=== PATIENT | male | born 1945 | race Caucasian/White ===

== ENCOUNTER 2022-02-19 22:33 | Inpatient (IN) | payer MEDICARE ==
[~2022-02-19] VITALS: Ht 188 cm; Wt 83.9 kg
[~2022-02-19 22:33] MED LIST: COUMADIN2.5 MG PO; FUROSEMIDE40 MG PO; KLOR-CON20 MEQ PO; LATANOPROST2.5 ML OP; LOSARTAN POTAS100 MG PO; LOVENOX SQ; TERAZOSIN HCL1 MG PO
[2022-02-19] MEDS ORDERED: SODIUM CHLORIDE FLUSH 10 ML SYR IV PRN (22:45)
[2022-02-19] MEDS ORDERED: ONDANSETRON HCL INJ 2MG/ML 2ML 2 MG/ML VIAL IV STA (23:22)
[2022-02-19] MEDS ORDERED: Morphine 4mg INJECTION 4 MG/ML INJ IV ONE (23:30)
[2022-02-19] MEDS ORDERED: Morphine 4mg INJECTION 4 MG/ML INJ ONE (23:41)
[2022-02-19] MEDS ORDERED: ONDANSETRON HCL INJ 2MG/ML 2ML 2 MG/ML VIAL ONE (23:41)
[2022-02-20] MEDS ORDERED: Morphine 4mg INJECTION 4 MG/ML INJ IV ONE (02:00)
[2022-02-20 02:41] LABS: CLARITY,URINE SL CLOUDY (CLEAR); COLOR,URINE ORANGE (YELLOW); LEUKOCYTE ESTERASE ,URINE NEGATIVE (NEGATIVE); NITRITE,URINE NEGATIVE (NEGATIVE)
[2022-02-20 02:42] LABS: KETONES,URINE NEGATIVE (NEGATIVE); PROTEIN,URINE DIPSTICK 1+ (NEGATIVE); URINE UROBILINOGEN 0.2 mg/dL (0.2 - 1)
[2022-02-20 02:45] LABS: BASOPHILS % 0.2 % (0.0-1.0); EOSINOPHILS % 0.1 % (0.0-6.0); HEMATOCRIT 26.8 % (38.2-49.6); HEMOGLOBIN 8.6 g/dL (14.0-18.0); LYMPHOCYTES # (AUTO) 0.8 (1.0-3.2); MEAN CORPUSCULAR HEMOGLOBIN 30.5 pg (28-32); MEAN CORPUSCULAR HGB CONC 32.1 g/dL (31-35); MONOCYTES % 12.6 % (4.4-11.3); NEUTROPHILS # (AUTO) 6.2 (2.1-6.9); NEUTROPHILS % 76.9 % (38.7-80.0); PLATELET COUNT 137 x10e3/uL (140-360); RED BLOOD COUNT 2.82 x10e6/uL (4.3-5.7)
[2022-02-20 02:52] LABS: WBC,URINE (MAN) 21-50 /HPF (0-5)
[2022-02-20 02:53] LABS: BACTERIA,URINE MANY /HPF; EPITHELIAL CELLS,URINE FEW /LPF; RBC,URINE >50 /HPF (0-5)
[2022-02-20 03:20] LABS: ALBUMIN 3.3 g/dL (3.5-5.0); CALCIUM 8.3 mg/dL (8.4-10.2); CREATININE, SERUM 1.1 mg/dL (0.72-1.25)
[2022-02-20] MEDS ORDERED: CEFTRIAXONE 1 GM VIAL IV ONE (03:30)
[2022-02-20] MEDS ORDERED: SODIUM CHLORIDE FLUSH 10 ML SYR INJ PRN (03:30)
[2022-02-20] MEDS ORDERED: TRAMADOL HCL 50 MG TAB PO PRN (04:45)
[2022-02-20 08:04] VITALS: BP 115/61
[2022-02-20 08:09] VITALS: BP 115/61
[2022-02-20] MEDS ORDERED: LIPITOR20 MG PO (09:03)
[2022-02-20] MEDS ORDERED: PLAVIX75 MG PO (09:03)
[2022-02-20 11:39] VITALS: BP 123/66
[2022-02-20] MEDS ORDERED: FUROSEMIDE 20 MG TAB PO PRN (13:00)
[2022-02-20 15:00] LABS: INR 2.44; PROTHROMBIN TIME 28.3 seconds (11.9-14.5)
[2022-02-20 16:00] VITALS: BP 140/76
[2022-02-20] MEDS ORDERED: ACETAMINOPHEN 325 MG TAB PO PRN (16:45)
[2022-02-20] MEDS: WARFARIN SOD 2 MG TAB PO SCH (17:03)
[2022-02-20] MEDS: LOSARTAN POTASSIUM 100 MG TAB PO SCH (17:04)
[2022-02-20 19:15] VITALS: BP 131/57
[2022-02-20 20:00] VITALS: BP 131/57
[2022-02-20] MEDS: ATORVASTATIN 40 MG TAB PO SCH (21:16)
[2022-02-20] MEDS: LATANOPROST(OPTH) 2.5 ML BTL OP SCH (21:16)
[2022-02-21] VITALS (7 sets, daily range): BP systolic 106–130; BP diastolic 60–94
[2022-02-21 06:34] LABS: BASOPHILS # (AUTO) 0.1 (0.0-0.1); BASOPHILS % 0.5 % (0.0-1.0); EOSINOPHILS % 0.3 % (0.0-6.0); HEMOGLOBIN 8.6 g/dL (14.0-18.0); LYMPHOCYTES # (AUTO) 1.1 (1.0-3.2); LYMPHOCYTES % 10.8 % (18.0-39.1); MEAN CORPUSCULAR HEMOGLOBIN 30.2 pg (28-32); MEAN CORPUSCULAR HGB CONC 31.9 g/dL (31-35); MEAN CORPUSCULAR VOLUME 94.7 fL (81-99); MONOCYTES # (AUTO) 1.1 (0.2-0.8); MONOCYTES % 11.6 % (4.4-11.3); NEUTROPHILS # (AUTO) 7.5 (2.1-6.9); NEUTROPHILS % 76.5 % (38.7-80.0); PLATELET COUNT 155 x10e3/uL (140-360); RED BLOOD COUNT 2.85 x10e6/uL (4.3-5.7)
[2022-02-21 07:08] LABS: ANION GAP 14.8 mmol/L (8-16); CALCIUM 8.1 mg/dL (8.4-10.2); CREATININE, SERUM 0.86 mg/dL (0.72-1.25); POTASSIUM 3.8 mmol/L (3.5-5.1)
[2022-02-21] MEDS: CLOPIDOGREL BISULFATE 75 MG TAB PO SCH (09:42)
[2022-02-21] MEDS: LOSARTAN POTASSIUM 100 MG TAB PO SCH (09:42)
[2022-02-21] MEDS: LATANOPROST(OPTH) 2.5 ML BTL OP SCH (09:47)
[2022-02-21 14:14] LABS: FREE THYROXINE INDEX 1.7611 (1.4-3.8); THYROID STIMULATING HORMONE 1.732 uIU/mL (0.350-4.940)
[2022-02-21] MEDS: WARFARIN SOD 2 MG TAB PO SCH (19:26)
[2022-02-21] MEDS: ATORVASTATIN 40 MG TAB PO SCH (20:14)
[2022-02-22] VITALS (7 sets, daily range): BP systolic 109–130; BP diastolic 48–79
[2022-02-22 06:33] LABS: BASOPHILS % 0.4 % (0.0-1.0); EOSINOPHILS # (AUTO) 0.2 (0.0-0.4); EOSINOPHILS % 2.9 % (0.0-6.0); HEMATOCRIT 24.7 % (38.2-49.6); LYMPHOCYTES # (AUTO) 1.1 (1.0-3.2); LYMPHOCYTES % 14.7 % (18.0-39.1); MEAN CORPUSCULAR HEMOGLOBIN 30.7 pg (28-32); MEAN CORPUSCULAR HGB CONC 32.4 g/dL (31-35); MEAN CORPUSCULAR VOLUME 94.6 fL (81-99); MONOCYTES # (AUTO) 0.8 (0.2-0.8); MONOCYTES % 10.4 % (4.4-11.3); NEUTROPHILS # (AUTO) 5.2 (2.1-6.9); NEUTROPHILS % 71.5 % (38.7-80.0); PLATELET COUNT 173 x10e3/uL (140-360); RED BLOOD COUNT 2.61 x10e6/uL (4.3-5.7)
[2022-02-22 06:50] LABS: ANION GAP 12.7 mmol/L (8-16); CALCIUM 7.9 mg/dL (8.4-10.2); CREATININE, SERUM 0.78 mg/dL (0.72-1.25); POTASSIUM 3.7 mmol/L (3.5-5.1)
[2022-02-22] MEDS: LOSARTAN POTASSIUM 100 MG TAB PO SCH (08:55)
[2022-02-22] MEDS: CLOPIDOGREL BISULFATE 75 MG TAB PO SCH (08:56)
[2022-02-22] MEDS: WARFARIN SOD 2 MG TAB PO SCH (17:00)
[2022-02-22] MEDS: ATORVASTATIN 40 MG TAB PO SCH (20:18)
[2022-02-23] VITALS: BP 114/70
[2022-02-23 04:00] VITALS: BP 148/52
[2022-02-23 08:15] VITALS: BP 120/57
[2022-02-23] MEDS: CLOPIDOGREL BISULFATE 75 MG TAB PO SCH (08:52)
[2022-02-23] MEDS: LATANOPROST(OPTH) 2.5 ML BTL OP SCH (08:55)
[2022-02-23] MEDS: LOSARTAN POTASSIUM 100 MG TAB PO SCH (08:59)
[2022-02-23 09:09] VITALS: BP 120/57
[2022-02-23 11:26] VITALS: BP 144/59
[2022-02-23] MEDS ORDERED: LACTULOSE SYRUP 20 GM/30 ML UDC PO PRN (13:15)
[2022-02-23 13:35] LABS: INR 1.61; PROTHROMBIN TIME 20.5 seconds (11.9-14.5)
[2022-02-23 15:35] VITALS: BP 106/54
[2022-02-23 15:50] LABS: BASOPHILS % 0.6 % (0.0-1.0); EOSINOPHILS # (AUTO) 0.1 (0.0-0.4); EOSINOPHILS % 1.6 % (0.0-6.0); HEMATOCRIT 27.8 % (38.2-49.6); LYMPHOCYTES # (AUTO) 0.7 (1.0-3.2); LYMPHOCYTES % 10.1 % (18.0-39.1); MEAN CORPUSCULAR HEMOGLOBIN 30.8 pg (28-32); MEAN CORPUSCULAR HGB CONC 32.4 g/dL (31-35); MEAN CORPUSCULAR VOLUME 95.2 fL (81-99); MONOCYTES # (AUTO) 0.7 (0.2-0.8); MONOCYTES % 10.5 % (4.4-11.3); NEUTROPHILS # (AUTO) 5.4 (2.1-6.9); NEUTROPHILS % 77.1 % (38.7-80.0); PLATELET COUNT 178 x10e3/uL (140-360); RED BLOOD COUNT 2.92 x10e6/uL (4.3-5.7); RED CELL DISTRIBUTION WIDTH 13.2 % (11.7-14.4)
[2022-02-23 16:36] LABS: ANION GAP 13.6 mmol/L (8-16); CALCIUM 7.8 mg/dL (8.4-10.2); CREATININE, SERUM 0.76 mg/dL (0.72-1.25); POTASSIUM 3.6 mmol/L (3.5-5.1)
[2022-02-23] MEDS: WARFARIN SOD 2 MG TAB PO SCH (17:24)
[2022-02-24] MEDS ORDERED: CYANOCOBALAMIN INJ 1,000 MCG/ML VIAL IM SCH (09:00)
== END 2022-02-23 18:19 | DRG 556 ==
LOC: ER 22:36 → ERHOLD 02-20 03:29 → MED/SURG2 02-20 07:47 → OBSVTOIN 02-22 07:32
DX: M25.551 Pain in right hip (principal); N39.0 Urinary tract infection, site not specified; I25.10 Atherosclerotic heart disease of native coronary artery without angina pectoris; I48.91 Unspecified atrial fibrillation; Z79.01 Long term (current) use of anticoagulants; W18.30XA Fall on same level, unspecified, initial encounter; Y92.009 Unspecified place in unspecified non-institutional (private) residence as the place of occurrence of the external cause; D64.9 Anemia, unspecified; R63.0 Anorexia; Z68.23 Body mass index [BMI] 23.0-23.9, adult
CPT/HCPCS: 36415; 71045; 80048; 80053; 81001; 82607; 83540; 84436; 84443; 84466; 84479; 85025; 85610; 87086; 99283; 99284; G0378; J0696; J2270; J2405

== ENCOUNTER 2022-09-17 11:21 | Emergency (ER) | payer MEDICARE ==
[~2022-09-17] VITALS: Ht 188 cm; Wt 83.9 kg
[~2022-09-17 11:21] MED LIST changes: +LIPITOR20 MG PO; +PLAVIX75 MG PO
[2022-09-17 13:33] LABS: BASOPHILS % 0.6 % (0.0-1.0); EOSINOPHILS # (AUTO) 0.1 (0.0-0.4); EOSINOPHILS % 1.4 % (0.0-6.0); HEMATOCRIT 33.5 % (38.2-49.6); HEMOGLOBIN 10.6 g/dL (14.0-18.0); LYMPHOCYTES # (AUTO) 0.7 (1.0-3.2); MEAN CORPUSCULAR HEMOGLOBIN 29.9 pg (28-32); MEAN CORPUSCULAR HGB CONC 31.6 g/dL (31-35); MEAN CORPUSCULAR VOLUME 94.4 fL (81-99); MONOCYTES # (AUTO) 0.5 (0.2-0.8); MONOCYTES % 7.9 % (4.4-11.3); NEUTROPHILS # (AUTO) 5.2 (2.1-6.9); NEUTROPHILS % 79.6 % (38.7-80.0); PLATELET COUNT 199 x10e3/uL (140-360); RED BLOOD COUNT 3.55 x10e6/uL (4.3-5.7); RED CELL DISTRIBUTION WIDTH 14.7 % (11.7-14.4)
[2022-09-17 13:46] LABS: ALBUMIN 3.9 g/dL (3.5-5.0); ANION GAP 15.1 mmol/L (8-16); CALCIUM 9.1 mg/dL (8.4-10.2); CREATININE, SERUM 0.89 mg/dL (0.72-1.25); POTASSIUM 4.1 mmol/L (3.5-5.1)
[2022-09-17 13:53] LABS: CREATINE KINASE MB 4.8 ng/mL (0-5.0)
[2022-09-17 14:43] LABS: CLARITY,URINE SL CLOUDY (CLEAR); COLOR,URINE YELLOW (YELLOW); KETONES,URINE NEGATIVE (NEGATIVE); LEUKOCYTE ESTERASE ,URINE NEGATIVE (NEGATIVE); NITRITE,URINE NEGATIVE (NEGATIVE); PROTEIN,URINE DIPSTICK NEGATIVE (NEGATIVE); URINE UROBILINOGEN 0.2 mg/dL (0.2 - 1)
[2022-09-17 14:50] LABS: BACTERIA,URINE FEW /HPF; RBC,URINE 0-5 /HPF (0-5); WBC,URINE (MAN) 0-5 /HPF (0-5)
[2022-09-17] MEDS ORDERED: ULTRAM 50MG50 MG PO (16:26)
[2022-09-17 16:36] VITALS: BP 125/72
[2022-09-18] MEDS ORDERED: BACITRACIN ZINC 15 GM OINT TOP SCH (09:00)
== END 2022-09-17 16:37 | disposition home or self-care (01) ==
LOC: ER 13:04
DX: M25.512 Pain in left shoulder (principal); S42.032A Displaced fracture of lateral end of left clavicle, initial encounter for closed fracture; M25.522 Pain in left elbow; M25.562 Pain in left knee; W07.XXXA Fall from chair, initial encounter; Y92.89 Other specified places as the place of occurrence of the external cause; I51.7 Cardiomegaly; M16.0 Bilateral primary osteoarthritis of hip; I10 Essential (primary) hypertension; I48.91 Unspecified atrial fibrillation; H40.9 Unspecified glaucoma; R94.31 Abnormal electrocardiogram [ECG] [EKG]
CPT/HCPCS: 36415; 71045; 80053; 81001; 82550; 82553; 84484; 85025; 93005; 99284